=== PATIENT | male | born 1965 | race Caucasian/White ===

== ENCOUNTER 2023-12-09 08:54 | Outpatient (RCR) | payer BC, SELFPAY ==
[2023-12-09 09:14] LABS: % Basophils 0.5 % (0-2); % Eosinophils 2.5 % (0-6); % Immature Granulocytes 0.2 % (0-0.5); % Lymphocytes 23.3 % (20.5-51.1); % Monocytes 6.8 % (1.7-9.3); % Neutrophils 66.7 % (42.2-75.2); Absolute Eosinophils 0.1 10^3/uL (0-0.7); Absolute Monocytes 0.3 10^3/uL (0.1-0.6); Hematocrit 44.3 % (39.0-52.0); Hemoglobin 16.4 g/dL (13.0-18.0); Mean Corpuscular Hgb 31.8 pg (27.0-31.0); Mean Corpuscular Volume 85.9 fL (80.0-94.0); Mean Platelet Volume 10.1 fL (7.4-10.4); Platelet Count 142 10^3/uL (130-400); Red Blood Cell Count 5.16 10^6/uL (4.70-6.10); Red Cell Dist. Width 11.7 % (11.5-14.5); White Blood Cell Count 4.4 10^3/uL (4.8-10.8)
[2023-12-09 09:20] VITALS: BP 188/99
[2023-12-09 09:35] VITALS: BP 175/98
[2023-12-09 09:50] VITALS: BP 160/99
[2023-12-09 10:20] LABS: Iron 140 ug/dl (49-181)
[2023-12-09 10:29] LABS: Percent Saturation 41 % (20-50); Total Iron Binding Capacity 336 ug/dl (261-462)
== END 2023-12-09 11:40 | disposition home or self-care (01) ==
LOC: OID 08:54
PROVIDERS: ATTENDING PHYSICIAN Specialist; FAMILY PHYSICIAN Family Medicine
DX: E83.110 Hereditary hemochromatosis (principal)
CPT/HCPCS: 36415; 82728; 83540; 83550; 85025; 99195

== ENCOUNTER 2024-11-24 09:47 | Outpatient (RCR) | payer BC, SELFPAY ==
[2024-11-24 10:16] VITALS: BP 155/78
[2024-11-24 10:41] VITALS: BP 146/86
[2024-11-24 10:45] VITALS: BP 115/84
== END 2024-11-25 09:32 | disposition home or self-care (01) ==
LOC: OID 09:47
PROVIDERS: ATTENDING PHYSICIAN Specialist; FAMILY PHYSICIAN Family Medicine
DX: E83.110 Hereditary hemochromatosis (principal)
CPT/HCPCS: 99195

== ENCOUNTER 2025-09-19 13:31 | Outpatient (RCR) | payer BC, SELFPAY ==
[2025-09-19 13:56] VITALS: BP 167/86
[2025-09-19 14:34] VITALS: BP 141/77
[2025-09-19 14:40] VITALS: BP 137/85
== END 2025-10-04 23:59 | disposition home or self-care (01) ==
LOC: OID 13:31
PROVIDERS: ATTENDING PHYSICIAN Specialist; FAMILY PHYSICIAN Family Medicine
DX: E83.110 Hereditary hemochromatosis (principal)
CPT/HCPCS: 99195